=== PATIENT | female | born 1950 | race Caucasian/White ===

== ENCOUNTER → 2017-07-20 07:00 | Outpatient (CLI) | payer MEDICARE, SELFPAY ==
--- NOTE | 2017-07-20 07:19 | MRI_ITS ---
STUDY: MRI LEFT KNEE REASON FOR EXAM: Follow-up marrow abnormality. TECHNIQUE: Standardized fat and water weighted pulse sequences were obtained in all 3 orthogonal planes before and after intravenous administration of 7 mL of Gadavist. COMPARISON: Bone scan 04/23/2017 and MRI images 08/04/2016. FINDINGS: There is a horizontal tear of the inferior articular surface of the posterior horn of the medial meniscus (proton-density sagittal images 10, 11). Normal hyaline cartilage of the medial femorotibial compartment. There is a very small subchondral cyst in the posterior nonweightbearing portion of the medial femoral condyle. Normal visualized medial collateral ligamentous complex (MCL). Normal distal semimembranosus, gracilis and semitendinosus tendons. Normal lateral meniscus. Normal hyaline cartilage of the lateral femorotibial compartment. Normal lateral femoral condyle and tibial plateau. Normal proximal tibiofibular articulation. Normal lateral collateral (fibular) ligament. Normal popliteus tendon. Normal biceps femoris tendon. Normal anterior cruciate ligament (ACL). Normal posterior cruciate ligament (PCL). Normal congruent patellofemoral articulation. 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 Normal medial and lateral patellar retinaculum. Normal quadriceps tendon. Normal patellar tendon. Normal Hoffa's fat pad. There is no joint effusion. The soft tissues are unremarkable. There is no interval change of the of the elongated serpentine well-defined lesion in the femoral diaphysis extending to the metaphysis (T2 coronal images 16-22) with contrast enhancement at the periphery of the lesion (postcontrast T1 axial images 1-15) and mild sclerosis at the periphery of the lesion (proton-density coronal images 16-22) most consistent with a bone infarct. There may be a more cystic area within the infarct in the proximal aspect of the visualized femoral diaphysis (T2 sagittal image 12). MRI/Lower Ext Joint Only W/WO Cont IMPRESSION: Medial meniscal tear. 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 Electronically Signed: Jesus Manuel Serna MD at 9:51 EST Tel , Service support ,
[2017-07-20 07:45] LABS: CREATININE FINGERSTICK < 0.6 mg/dL (0.55-1.02); EGFR FINGERSTICK > 60.0000 mL/min (>60)
== END ==
PROVIDERS: Family Provider Family Medicine; PCP Family Medicine; Visit Provider Internal Medicine Hematology & Oncology
DX: R93.7 Abnormal findings on diagnostic imaging of other parts of musculoskeletal system (principal)
CPT/HCPCS: 73723; A9585

== ENCOUNTER 2020-12-13 05:52 | Day surgery (SDC) | payer MEDICARE, SELFPAY ==
[2020-12-13] VITALS (7 sets, daily range): BP systolic 108–119; BP diastolic 68–75; PULSE 72–86; RESP 14–16; TEMP 36.3–36.9; O2SAT 94–100; BMI 24.5
[2020-12-13] MEDS: Lactated Ringers 1,000 ML 100 ML IV (06:33)
--- NOTE | 2020-12-13 09:45 | OP.PCM_ITS ---
Report of Operation Date of Procedure: 12/13/20 Pre-Operative Diagnosis: A 1 stenosing tenosynovitis RMF Post-Operative Diagnosis: same Surgery/Procedure Performed:: RMF A 1 christiano release Description of Surgical Findings:: Report of Operation: 12/13/2020 Date of Procedure: RMF trigger finger release Preoperative Diagnosis: A1 stenosing tenosynovitis, right [ middle ] finger Postoperative Diagnosis: same Procedure Performed: A1 christiano release, right [middle ] finger Anesthesia: IV Regional Anesthesiologist: Jasen Trejo M.D. Description of Procedure: With appropriate informed consent, the patient was taken to the operative suite. After the induction of regional anesthesia, the right upper extremity was prepared and draped sterilely. Subsequently, a transverse incision was made in the base of the [middle ] finger on the volar aspect overlying the first annular christiano with #15 blade scalpel. Hemostasis was perfected with bipolar electrocautery. Dissection was carried down to the flexor tendon sheath. Retractors were placed medially and laterally for protection of neurovascular structures. Thereafter, the annular christiano was incised with a combination of scalpel and scissor dissection. The flexor tendon was inspected and I was able to take the right [middle ] finger through a full range of motion without any catching, locking or triggering. Subsequently, the wound was irrigated and closed with interrupted sutures of 4-0 nylon. A sterile well- padded dressing and Silviano wrap were applied. The tourniquet was released. Excellent blood flow returned to the right upper extremity. The patient was transferred to the PACU in stable and satisfactory condition. Mike Lloyd DO Surgeon: Mike Lloyd chief of field operations: None Type of Anesthesia: Block,Trever/Supplemental Anesthesiologist: Jasen Trejo Admit VTE Documentation VTE Present on Admission: No VTE Mechan Device Prophylaxis: SCD's VTE Pharm Prophylaxis ordered?: No Reason prophylaxis not ordered:: Procedure Not Indicated
== END 2020-12-13 08:59 ==
LOC: SDC 05:54 → AC 05:55
PROVIDERS: PCP Family Medicine; Referring Provider Orthopaedic Surgery; Visit Provider Orthopaedic Surgery
PROC: (CPT 26055; principal; 2020-12-13 07:20)
DX: M65.331 Trigger finger, right middle finger (principal); M65.841 Other synovitis and tenosynovitis, right hand; M19.90 Unspecified osteoarthritis, unspecified site; I10 Essential (primary) hypertension; E78.00 Pure hypercholesterolemia, unspecified; Z79.899 Other long term (current) drug therapy
CPT/HCPCS: 01810; 26055; J7120; A4216